=== PATIENT | female | born 1955 | race Caucasian/White ===

== ENCOUNTER → 2017-02-16 | Outpatient (CLI) | payer OTHER, MEDICARE ==
[~2017-02-16] MED LIST: ASPIRIN325 MG PO; CRANBERRY450 M1 PO; EXCEDRIN MIGRA1 EACH PO; GABAPENTIN300 MG PO; IMITREX DPS100 MG PO; MELATONIN10 M2 PO; MOTRIN-DPS800 MG PO; NITROFURANTOIN100 MG PO; OXY IR DPS5 MG PO; PEPCID DPS20 MG PO; PROTRIPTYLINE H10 MG PO; TUMS DPS500 MG PO; ULTRAM DPS50 MG PO; VITAMIN D-32000 UNI1 PO; VOLTAREN 1% GE100 GM TP; ZANAFLEX4 MG PO
== END | disposition home or self-care (01) ==
LOC: PTH.S 08:04
DX: Z01.818 Encounter for other preprocedural examination (principal)

== ENCOUNTER → 2017-02-22 | Outpatient (CLI) | payer OTHER, MEDICARE ==
--- NOTE | ~2017-02-22 | ECH ---
Transthoracic Echocardiography Report (TTE) Demographics Patient Name ZO SAUCEDO Date of Study 02/22/2017 Patient Number [id number] Visit Number [id number] Date of 1955 Room Number Accession Number [id number] Gender Female Age 61 year(s) Referring Carlitos Phelps MD Health Care Sanitary Technician Brooke Markham [facility] Physician Andres Young Physician Interpreting Celena RABAGO Piped Buttonhole Machine Operator Physician Shashi Supervising Ordering Physician Carlitos Garza MD/NASP Nurse Stress Assistant Project Engineer Conclusions Contractility Score Summary Normal Left Ventricular contractility was noted. Summary Technically adequate exam. The estimated left ventricular ejection fraction is 60-65%. Mild to moderate left ventricular hypertrophy. Diastolic assessment reveals Grade I diastolic dysfunction. There is evidence of a possible patent foramen ovale by color Doppler. Bubble study was done, there is no evidence for a PFO or ASD. There is trivial aortic regurgitation by color Doppler. No other significant valvular abnormalities. Recommendation The patient will be given the results of this study by the physician who ordered the exam. Procedure Type of Study TTE procedure:Echo Complete SF. Procedure Date Date: 02/22/2017 Start: 09:52 AM Technical Quality: Adequate visualization Indications:Dyspnea with exertion and pre surgical clearance. Appropriate Use Criteria: 9 Contrast Medium: Bubble Study. Height: 65 inches Weight: 189 pounds BSA: 1.93 m Rhythm: Within normal limits HR: 96 bpm BP: 168/92 mmHg M-Mode/2D Measurements LV Diastolic Dimension: 3.55 cm LV Systolic Dimension: 2.32 cm LV Septum Diastolic: 1.07 cm LV PW Diastolic: 1.21 cm AO Root Dimension: 2.53 cm Cardiac Output: 6.12 l/min LA Dimension: 3.55 cm Cardiac Index: 3.17 l/min*m RV Diastolic Dimension: 2.7 cm LA volume index: 20 ml/m LVOT: 1.8 cm LVOT VTI: 25.05 cm RV Base: 2.78 cm LV Stroke volume: 63.71 ml RV Mid: 2.38 cm LV Stroke volume index: 33.01 ml/m RV Length: 6.37 cm TAPSE: 2.2 cm TDI-S': 20 cm/s Doppler Measurements AV Peak Velocity: 1.4 m/s MV Peak E-Wave: 0.76 m/s AV Peak Gradient: 7.84 mmHg MV Peak A-Wave: 0.97 m/s AV Mean Gradient: 4.9 mmHg MV E/A Ratio: 0.78 LVOT Peak Velocity: 1.41 m/s MV P1/2t: 48.4 msec AV Area (Continuity):2.16 cm MV Deceleration Time: 167 msec TR Velocity:2.46 m/s MV Area (PHT): 4.54 cm TR Gradient:24.21 mmHg PV Peak Velocity: 1.15 m/s Estimated RAP:5 mmHg PV Peak Gradient: 5.31 mmHg Estimated RVSP: 29 mmHg Estimated PASP: 29.21 mmHg RA Area: 12.93 cm Findings Left Ventricle The left ventricle is normal in size . Mild to moderate left ventricular hypertrophy. Diastolic assessment reveals Grade I diastolic dysfunction. Right Ventricle Normal right ventricle structure and function. Left Atrium Normal left atrial size. There is evidence of a possible patent foramen ovale by color Doppler. Bubble study was done, there is no evidence for a PFO or ASD. Right Atrium Normal right atrial size. Mitral Valve Normal mitral valve structure and function. Trivial mitral regurgitation by color Doppler. Aortic Valve Normal aortic valve structure and function. There is trivial aortic regurgitation by color Doppler. Tricuspid Valve Normal appearing tricuspid valve. Mild tricuspid regurgitation by color Doppler. Estimated pulmonary pressures within normal limits. Pulmonic Valve Normal pulmonic valve structure and function. Pericardial Effusion No evidence of pericardial effusion. Miscellaneous Visualized portions of the aortic root and ascending aorta appear normal in size. Pleural Effusion No evidence of pleural effusion. Contractility Score LV regional wall motion:(0-Non visualized 1-Normal 2-Hypokinesis 3-Akinesis 4-Dyskinesis 5-Aneurysm) Signature
--- NOTE | ~2017-02-22 | CST ---
Cardiac Perfusion Imaging Demographics Patient Name LEWIS Lazo Gender Female Patient Number [id number] Race Visit Number [id number] Ethnicity [employer] ID Room Number Accession Number [id number] Height 65 inches Date of 1955 Weight 189 pounds Age 61 year(s) BSA 1.93 m Referring Physician Carlitos Phelps MD BMI 31.45 kg/m Interpreting [facility] Date of study 02/22/2017 Physician Josse Polanco MD Supervising MD/MLP Josse Polanco MD NM Technologist Mani Marks, [facility] Ordering Physician Carlitos Phelps MD Stress Jerzy Prasad systems test technician Stress ECG Reading Josse Polanco MD Nurse Kylah Leblancy Physician Maximiliano Lawton The procedure was explained in detail to the patient. Risks, complications and alternative treatments were reviewed. Written consent was obtained. Medications Reviewed with Patient prior to Procedure. Procedure Procedure Type: Nuclear Stress Test:Pharmacological, Lexiscan Procedure Start time: 02/22/2017 08:30 Indications: Hyperlipidemia, Hypertension and pre surgical clearance. Risk Factors The patient risk factors include:treated hypercholesterolemia, treated hypertension, family history of premature CAD and dyslipidemia. Conclusions Summary Perfusion Images: The overall quality of the study is good. Left ventricular cavity is noted to be normal on the stress and rest studies. There is no evidence of abnormal lung activity. The right ventricle is not visualized and cannot be assessed. Stress SPECT images demonstrate homogenous tracer distribution throughout the myocardium. Rest SPECT images demonstrate homogenous tracer distribution throughout the myocardium. Gated SPECT imaging reveals normal myocardial thickening and wall motion. The left ventricular ejection fraction was calculated to be 86%. Impression ECG portion of stress test is clinically negative for ischemia by diagnostic criteria. Myocardial perfusion imaging is normal. Overall left ventricular systolic function was normal without regional wall motion abnormalities. There are no previous studies for comparison. Stress Protocols Resting ECG Normal sinus rhythm. Resting HR:101 bpm Resting BP:168/92 mmHg Stress Protocol:Pharmacologic Predicted HR: 159 bpm Test duration: 06:00 min Reason for termination:Infusion complete ECG Findings No ECG changes suggestive of ischemia. Arrhythmias No rhythm abnormality. Symptoms Shortness of breath. Symptoms resolved by end of test. Complications Procedure complication: None. Stress Interpretation Appropriate hemodynamic response to Lexiscan. No significant ST-T wave changes with Lexiscan. ECG portion is negative for ischemia by diagnostic criteria. Imaging Results Summed scores - Summed stress score: 0 - Summed rest score: 0 - Summed difference score: 0 Stress ejection Ejection fraction:86 % EDV :66 ml ESV :9 ml Stroke volume :57 ml LV mass :101 gr Imaging Protocols Rest Stress Isotope:Tc99m Myoview IV Isotope: Tc99m Myoview IV Isotope dose:10.5 mCi Isotope dose:31.9 mCi Date:02/22/2017 07:10 Date:02/22/2017 08:38 Technique: SPECT Technique: Gated Supine SPECT Supine Scan Time:30 minutes post injection Scan Time:15-30 minutes post injection Procedure Medications - Regadenoson (Lexiscan) 0.4 mg IV over 10-15 sec. I.V. 0.4 mg. - Aminophylline 50 mg IV I.V. 125 mg. Medications administered per verbal order and read back to physician prior to administration. Medical History Admission Data Admission date: 02/22/2017 Admission Time: 07:13 Hospital Status: Outpatient. Signatures
== END | disposition home or self-care (01) ==
LOC: CARD 02-20 16:23
DX: Z01.810 Encounter for preprocedural cardiovascular examination (principal); R06.09 Other forms of dyspnea; I10 Essential (primary) hypertension; E78.5 Hyperlipidemia, unspecified; Z82.49 Family history of ischemic heart disease and other diseases of the circulatory system

== ENCOUNTER 2017-02-28 06:04 | Inpatient (IN) | payer OTHER, MEDICARE ==
[~2017-02-28] VITALS: Ht 165.1 cm; Wt 88.4 kg
--- NOTE | ~2017-02-28 | OR ---
ADMIT: 02/28/2017 RM/LOC: [facility] MR#: [id number] [address] [address] ZO SAUCEDO [address] [place] [address] Operative/Delivery Room Report SEX: F AGE: 61 : 1955 SURGERY DATE: 02/28/2017 SURGEON: Chris Freeman MD PREOPERATIVE DIAGNOSIS: Right knee degenerative disease. POSTOPERATIVE DIAGNOSIS: Right knee degenerative disease. PROCEDURE: 1. Right total knee arthroplasty. 2. Intraarticular block. ASSISTANTS: 1. ALYCIA Duval. 2. Juanjo Martin PA-C. COMPLICATIONS: None. BLOOD LOSS: 100 mL. TOURNIQUET TIME: 34 minutes. COMPONENTS: Size 5 narrow Attune femoral component, size 4 modular tibial Attune component, a 35 mm oval patellar button, 8 mm posterior stabilized insert. DESCRIPTION OF THE PROCEDURE: The patient was taken to the Operating Room and the correct extremity was identified. The patient received a spinal anesthetic. The right lower extremity was prepped and draped in a standard fashion. The leg was exsanguinated and tourniquet inflated. An anterior incision was made and dissection was carried through the subcutaneous tissue. A medial parapatellar arthrotomy was performed. The patella subluxed laterally. The infrapatellar fat pad was partially excised for exposure. At that point, the distal femur was opened up with a drill. We cut 10 mm off the distal femur in 5 degrees of valgus using an intramedullary guide. We then cut the tibia perpendicular to its long axis taking it flush with the affected side with an extramedullary guide. We then sized the femur to a size 5 and pinned this in appropriate external rotation aligning it with the epicondylar axis. We then made anterior posterior chamfer cuts with the 4-in-1 cutting block. We opened up the joint space and removed the remaining posterior osteophytes, meniscus, and PCL ligament. We made our box cut centralizing the femoral component. The tibia was subluxed anteriorly, fit for a size 4 tibial tray, punched and drilled in appropriate external rotation. We then removed the remaining tibial osteophytes. We then cut the patella perpendicular to its long axis taking it flush with the lateral facet and fit it for a 35 mm oval patellar button restoring patellar height. We then put in trial components with an 8 mm insert. At that point, we had full extension, full flexion, patella tracked centrally and no lateral release was required. The knee was also stable to varus and valgus stress testing. All trial components ADMIT: 02/28/2017 RM/LOC: [facility] MR#: [id number] [address] [address] ZO SAUCEDO [address] [place] [address] Operative/Delivery Room Report SEX: F AGE: 61 : 1955 were removed and all the bony surfaces were Waterpik'd clean. We then cemented the tibia, femur, and patella in a standard fashion, put in the trial insert and held the knee in extension. Once the cement was hard, we deflated the tourniquet, obtained hemostasis, irrigated out the wound thoroughly, removed the trial insert and put in the real insert. The knee was again found to be stable with full range of motion. No Hemovac drain was used and then changed it from 3 degree external rotation block to 5 degree external rotation block. At that point, the extensor mechanism was closed with an interrupted 0- Vicryl suture with the knee in flexion. The subcutaneous tissue was closed 2-0 Vicryl and davon were placed in the skin. Sterile dressings were then applied. The patient was taken to the Recovery Room in stable condition with no complications. Chris Freeman MD/ jasmine JOB #: [id number] CC: Chris Freeman, Attending Physician Flavio Hsieh, Family Physician
[2017-03-03] MEDS ORDERED: GABAPENTIN300 MG PO (17:15)
[2017-03-03] MEDS ORDERED: IMITREX DPS100 MG PO (17:15)
[2017-03-03] MEDS ORDERED: NITROFURANTOIN100 MG PO (17:16)
[2017-03-03] MEDS ORDERED: VOLTAREN 1% GE100 GM TP (17:16)
[2017-03-03] MEDS ORDERED: ZANAFLEX4 MG PO (17:16)
[2017-03-03] MEDS ORDERED: PROTRIPTYLINE H10 MG PO (17:17)
[2017-03-03] MEDS ORDERED: VITAMIN D-32000 UNI1 PO (17:17)
[2017-03-03] MEDS ORDERED: MELATONIN10 M2 PO (17:21)
[2017-03-03] MEDS ORDERED: TUMS DPS500 MG PO (17:21)
[2017-03-03] MEDS ORDERED: CRANBERRY450 M1 PO (17:22)
[2017-03-03] MEDS ORDERED: EXCEDRIN MIGRA1 EACH PO (17:22)
[2017-03-03] MEDS ORDERED: PEPCID DPS20 MG PO (17:23)
[2017-03-03] MEDS ORDERED: MOTRIN-DPS800 MG PO (17:23)
[2017-03-03] MEDS ORDERED: OXY IR DPS5 MG PO (17:24)
[2017-03-03] MEDS ORDERED: ULTRAM DPS50 MG PO (17:24)
[2017-03-03] MEDS ORDERED: ASPIRIN325 MG PO (17:24)
--- NOTE | 2017-03-12 09:27 | HP ---
ADMIT: 02/28/2017 RM/LOC: [facility] MR#: [id number] [address] [address] LEWISZO Violet [address] [place] [address] Pre-OP History and Physical SEX: F AGE: 61 : 1955 DATE OF SERVICE: CHIEF COMPLAINT: Knee pain. HISTORY OF PRESENT ILLNESS: The patient is a 61-year-old female. She has had a long-standing history of right knee pain. She had been seen by Dr. Hsieh. She has had injections previously. Her pain limits her activity. At this point, she is being admitted for a right total knee arthroplasty. PAST MEDICAL HISTORY: Includes asthma, hypertension, fibromyalgia, rheumatoid arthritis and depression. PAST SURGICAL HISTORY: Include knee arthroscopy and back surgery. MEDICATIONS: Include: 1. Vitamins. 2. Voltaren gel. 3. Omeprazole. 4. Melatonin. 5. Advil. 6. Sumatriptan. 7. Tizanidine. 8. Nitrofurantoin. 9. Naproxen. 10.Neurontin. 11.Excedrin. ALLERGIES: TO CIPROFLOXACIN, OXYCODONE, AND SULFA. SOCIAL HISTORY: Denies any significant tobacco or alcohol use. REVIEW OF SYSTEMS: Negative. PHYSICAL EXAMINATION: GENERAL: A healthy-appearing female in no acute distress. She has a valgus alignment to the right lower extremity. Walks with antalgic gait. Positive meniscal signs laterally. Some crepitus laterally. Knee range of motion 5 to 100 degrees. No pain in the hip. Leg is neurovascularly intact. ADMIT: 02/28/2017 RM/LOC: [facility] MR#: [id number] [id number] [address] ZO SAUCEDO [address] [place] [address] Pre-OP History and Physical SEX: F AGE: 61 : 1955 DIAGNOSTIC DATA: X-rays; AP, lateral, PA, flexion view shows advanced right knee valgus degenerative joint disease. Complete lateral collapse. MRI shows large lateral meniscal tear. Lateral compartment edema. IMPRESSION: Advanced right knee degenerative joint disease with valgus degenerative joint disease, degenerative right lateral meniscal tear. PLAN: At this point in time, we talked about different options. There are significant valgus deformity and lateral compartment arthritis. We do feel knee arthroscopy given much improvement. Plan on proceeding with right Attune total knee arthroplasty. She is aware of the risks, benefits and options, and agreed to proceed. She has been seen and cleared from medical standpoint. Chris Freeman MD/ jasmine JOB #: [id number] CC: Chris Freeman, Attending Physician Flavio Hsieh, Family Physician
--- NOTE | 2017-04-18 21:07 | DS ---
ADMIT: 02/28/2017 RM/LOC: [facility] MR#: [id number] [address] [address] ZO SAUCEDO [address] [place] [address] General Discharge Summary SEX: F AGE: 61 : 1955 ADMISSION DATE: 02/28/2017 DISCHARGE DATE: 03/02/2017 REASON FOR ADMISSION: Elective right total knee arthroplasty after failing conservative treatment. PREOPERATIVE DIAGNOSIS: Right knee degenerative joint disease. POSTOPERATIVE DIAGNOSIS: Right knee degenerative joint disease. PROCEDURE PERFORMED: Right total knee arthroplasty. SURGEON: Chris Freeman MD ASSISTANTS: 1. ALYCIA Duval. 2. Juanjo Martin PA-C. COMPLICATIONS: None. BLOOD LOSS: 100 mL. ANESTHESIA: Spinal. ACTIVE MEDICAL PROBLEMS: Fibromyalgia, osteoarthritis, cervical disc disease, anxiety disorder, asthma, gastroesophageal reflux disease, hyperlipidemia, hypertension, and migraines. HOSPITAL COURSE: The patient was admitted on 03/02/2017 for elective right total knee arthroplasty done successfully without any complications by Dr. Freeman. She tolerated the procedure well. The patient did well with pain control with the use of intraoperative anesthetics as well as postoperative oral analgesics. She did as expected suffered from some acute blood loss anemia. Her hemoglobin dropped to 10.2 on 03/02/2017, but she remained hemodynamically stable and did not require blood transfusion. By postoperative day #2, she was doing well with physical therapy. She was stable and ready for discharge home with plans for outpatient physical therapy. DISCHARGE MEDICATIONS: 1. Sumatriptan 100 mg as directed. 2. Gabapentin 300 mg at bedtime. 3. Tizanidine 12 mg at bedtime. 4. Nitrofurantoin 100 mg every day. 5. Voltaren gel 1% daily as needed to neck and shoulders. 6. Protriptyline 20 mg every day. 7. Vitamin D3, 2000 units every day. 8. Melatonin 10 mg at bedtime. 9. Tums 500 mg 2 tablets daily as needed. ADMIT: 02/28/2017 RM/LOC: [facility] MR#: [id number] [address] [address] ZO SAUCEDO [address] [place] [address] General Discharge Summary SEX: F AGE: 61 : 1955 10.Cranberry extract 450 mg every day. 11.Excedrin Migraine daily as needed. 12.Ibuprofen 800 mg every 8 hours as needed. 13.Pepcid twice daily. 14.Aspirin 325 mg at bedtime for 6 weeks. 15.Tramadol 50 mg 1 to 2 tablets every 6 hours as needed for pain. 16.Oxycodone IR 5 mg 1 to 2 tablets every 4 hours as needed for breakthrough pain. DISCHARGE INSTRUCTIONS: The patient was discharged home with plans for outpatient physical therapy per total knee arthroplasty protocol. Follow up in the orthopedic office in 2 weeks with wound check and 6 weeks with x-ray. Follow up with primary care as directed. ALYCIA Duval / Chris Freeman MD / jasmine JOB #: [id number] CC: Chris Freeman MD, Attending Physician Flavio Hsieh MD, Family Physician
== END 2017-03-02 13:38 | disposition home or self-care (01) | DRG 470 ==
LOC: WOR 06:04 → 5MS 06:04
PROVIDERS: ADMIT Orthopaedic Surgery
PROC: 0SRC0J9 Replacement of Right Knee Joint with Synthetic Substitute, Cemented, Open Approach (ICD-10-PCS; principal; 2017-02-28)
DX: M17.11 Unilateral primary osteoarthritis, right knee (principal); D62 Acute posthemorrhagic anemia; I10 Essential (primary) hypertension; M06.9 Rheumatoid arthritis, unspecified; M23.200 Derangement of unspecified lateral meniscus due to old tear or injury, right knee; K21.9 Gastro-esophageal reflux disease without esophagitis; N81.10 Cystocele, unspecified; J45.20 Mild intermittent asthma, uncomplicated; E66.3 Overweight; Z68.31 Body mass index [BMI] 31.0-31.9, adult; M79.7 Fibromyalgia; F32.9 Major depressive disorder, single episode, unspecified; F41.9 Anxiety disorder, unspecified; E78.5 Hyperlipidemia, unspecified; Z98.1 Arthrodesis status; Z82.49 Family history of ischemic heart disease and other diseases of the circulatory system